=== PATIENT | female | born 1975 | race Caucasian/White ===

== ENCOUNTER 2018-10-31 06:47 | Day surgery (SDC) | payer MEDICAID ==
[~2018-10-31] VITALS: Ht 162.6 cm; Wt 70.4 kg
[2018-10-31] MEDS ORDERED: CHOL400T14 PO (07:53)
[2018-10-31] MEDS ORDERED: ASCO500C15 PO (07:53)
[2018-10-31] MEDS ORDERED: MAGN27TA2 PO (07:53)
[2018-10-31] MEDS ORDERED: CYAN1TAB18 PO (07:53)
[2018-10-31] MEDS ORDERED: CALC500T11 PO (07:53)
[2018-10-31] MEDS ORDERED: AMOX-422 PO (07:53)
[2018-10-31] MEDS ORDERED: CETI10TA18 PO (07:53)
[2018-10-31] MEDS ORDERED: ONDA8TAB13 PO (07:53)
[2018-10-31] MEDS ORDERED: PROC10TA10 PO (07:53)
[2018-10-31] MEDS ORDERED: FAMO20TA8 PO (07:53)
[2018-10-31] MEDS ORDERED: [UNRECOGNIZED DRUG - CODE] PO (07:53)
[2018-10-31] MEDS ORDERED: MULT-955 PO (07:53)
[2018-10-31] MEDS ORDERED: LIDO30CR23 TOP (07:53)
[2018-10-31 07:57] VITALS: BP 130/81
[2018-10-31 08:19] VITALS: BP 115/69
[2018-10-31 08:30] VITALS: BP 136/79
[2018-10-31 08:50] VITALS: BP 150/78
[2018-10-31 08:51] VITALS: BP 150/78
[2018-10-31] MEDS ORDERED: HYDROcodone/acetaminophen 5mg/325mg tablet PO STA (08:52)
[2018-10-31] MEDS ORDERED: LIDOcaine 1% 30ml preserv. free vial SQ ONE (09:00)
== END 2018-10-31 09:10 | disposition home or self-care (01) ==
LOC: SSTAY O 06:47
PROVIDERS: ATTEND Radiology Diagnostic Radiology
DX: J90 Pleural effusion, not elsewhere classified (principal); K21.9 Gastro-esophageal reflux disease without esophagitis; Z88.8 Allergy status to other drugs, medicaments and biological substances; Z79.899 Other long term (current) drug therapy; Z85.3 Personal history of malignant neoplasm of breast
CPT/HCPCS: 32555; 71045; J3490; C1729

== ENCOUNTER 2018-11-21 06:30 | Day surgery (SDC) | payer MEDICAID ==
[~2018-11-21] VITALS: Ht 162.6 cm; Wt 67.9 kg
[~2018-11-21 06:30] MED LIST: AMOX-422 PO; ASCO500C15 PO; CALC500T11 PO; CETI10TA18 PO; CHOL400T14 PO; CYAN1TAB18 PO; FAMO20TA8 PO; LIDO30CR23 TOP; MAGN27TA2 PO; MULT-955 PO; ONDA8TAB13 PO; PROC10TA10 PO; [UNRECOGNIZED DRUG - CODE] PO
[2018-11-21] MEDS ORDERED: IBUP-1984 PO (07:14)
[2018-11-21] MEDS ORDERED: BUDE10.22 INH (07:14)
[2018-11-21] MEDS ORDERED: HYDR-4383 PO (07:14)
[2018-11-21] MEDS ORDERED: FLUT16SP2 BOTHNARES (07:14)
[2018-11-21 07:30] VITALS: BP 130/63
[2018-11-21 08:25] VITALS: BP 142/69
[2018-11-21 08:39] VITALS: BP 141/73
[2018-11-21 08:59] VITALS: BP 130/82
[2018-11-21] MEDS ORDERED: LIDOcaine 1% 30ml preserv. free vial SQ ONE (09:00)
--- NOTE | 2018-11-21 09:00 | NUR ---
Pt coughing excessively post bilateral thoracentesis. Saleem Carrasco aware. No new orders received.
[2018-11-21 09:19] VITALS: BP 127/85
--- NOTE | 2018-11-21 09:25 | NUR ---
Pt still coughing but not as much as before. Pt feeling better and wants to go home. Appears in stable condition, although heart rate somewhat elevated. Pt discharged to home with family.
== END 2018-11-21 09:25 | disposition home or self-care (01) ==
LOC: SSTAY O 06:30
PROVIDERS: ATTEND Radiology Diagnostic Radiology
DX: J90 Pleural effusion, not elsewhere classified (principal); K21.9 Gastro-esophageal reflux disease without esophagitis; Z85.3 Personal history of malignant neoplasm of breast; Z79.899 Other long term (current) drug therapy
CPT/HCPCS: 32555; 71045; C1729; J3490

== ENCOUNTER 2018-11-29 06:24 | Day surgery (SDC) | payer MEDICAID ==
[~2018-11-29 06:24] MED LIST changes: -AMOX-422 PO; +BUDE10.22 INH; +FLUT16SP2 BOTHNARES; +HYDR-4383 PO; +IBUP-1984 PO
[2018-11-29 06:45] VITALS: BP 130/73
[2018-11-29 08:32] VITALS: BP 120/81
[2018-11-29 08:46] VITALS: BP 124/75
[2018-11-29] MEDS ORDERED: LIDOcaine 1% 30ml preserv. free vial SQ ONE (09:00)
[2018-11-29 09:01] VITALS: BP 131/72
== END 2018-11-29 09:20 | disposition home or self-care (01) ==
LOC: SSTAY O 06:24
PROVIDERS: ATTEND Radiology Diagnostic Radiology
DX: J90 Pleural effusion, not elsewhere classified (principal); J21.9 Acute bronchiolitis, unspecified; Z85.3 Personal history of malignant neoplasm of breast; Z79.899 Other long term (current) drug therapy; Z88.8 Allergy status to other drugs, medicaments and biological substances
CPT/HCPCS: 32555; 71045; C1729

== ENCOUNTER 2018-12-06 06:30 | Day surgery (SDC) | payer MEDICAID ==
[~2018-12-06] VITALS: Ht 162.6 cm; Wt 69.5 kg
[2018-12-06 06:40] VITALS: BP 139/78
[2018-12-06] MEDS ORDERED: LIDOcaine 1% 30ml preserv. free vial SQ STA (07:08)
[2018-12-06] MEDS ORDERED: AMOX-580 PO (07:21)
[2018-12-06] MEDS ORDERED: MAGN400C PO (07:21)
[2018-12-06] MEDS ORDERED: OLIV250C PO (07:21)
[2018-12-06 09:05] VITALS: BP 117/73
[2018-12-06 09:10] VITALS: BP 111/83
[2018-12-06 09:25] VITALS: BP 120/76
== END 2018-12-06 09:25 | disposition home or self-care (01) ==
LOC: SSTAY O 06:30
PROVIDERS: ATTEND Radiology Vascular & Interventional Radiology
DX: J90 Pleural effusion, not elsewhere classified (principal); K21.9 Gastro-esophageal reflux disease without esophagitis; Z85.3 Personal history of malignant neoplasm of breast; Z79.899 Other long term (current) drug therapy
CPT/HCPCS: 32555; 71045; C1729; J3490

== ENCOUNTER 2018-12-19 07:10 | Day surgery (SDC) | payer MEDICAID ==
[~2018-12-19] VITALS: Ht 162.6 cm; Wt 68.4 kg
[~2018-12-19 07:10] MED LIST changes: +AMOX-580 PO; -MAGN27TA2 PO; +MAGN400C PO; +OLIV250C PO; -[UNRECOGNIZED DRUG - CODE] PO
[2018-12-19] MEDS ORDERED: GUAI120L55 PO (07:33)
[2018-12-19 07:37] VITALS: BP 132/76
[2018-12-19] MEDS ORDERED: LIDOcaine 1% 30ml preserv. free vial SQ STA (08:02)
[2018-12-19 08:32] VITALS: BP 100/65
[2018-12-19 08:40] VITALS: BP 132/76
[2018-12-19 08:55] VITALS: BP 102/65
[2018-12-19 09:10] VITALS: BP 100/64
== END 2018-12-19 09:15 | disposition home or self-care (01) ==
LOC: SSTAY O 07:10
PROVIDERS: ATTEND Radiology Diagnostic Radiology
DX: J90 Pleural effusion, not elsewhere classified (principal); K21.9 Gastro-esophageal reflux disease without esophagitis; Z79.899 Other long term (current) drug therapy; Z85.3 Personal history of malignant neoplasm of breast
CPT/HCPCS: 32555; 71045; C1729

== ENCOUNTER 2018-12-26 06:35 | Day surgery (SDC) | payer MEDICAID ==
[~2018-12-26] VITALS: Ht 162.6 cm; Wt 69.4 kg
[~2018-12-26 06:35] MED LIST changes: -AMOX-580 PO; +GUAI120L55 PO
[2018-12-26 06:47] VITALS: BP 124/81
[2018-12-26 08:41] VITALS: BP 126/81
[2018-12-26 08:57] VITALS: BP 128/81
[2018-12-26 09:29] VITALS: BP 131/67
== END 2018-12-26 09:50 | disposition home or self-care (01) ==
LOC: SSTAY O 06:35
PROVIDERS: ATTEND Radiology Vascular & Interventional Radiology
DX: J90 Pleural effusion, not elsewhere classified (principal); K21.9 Gastro-esophageal reflux disease without esophagitis; Z88.8 Allergy status to other drugs, medicaments and biological substances; Z85.3 Personal history of malignant neoplasm of breast
CPT/HCPCS: 32555; 71045

== ENCOUNTER 2019-01-02 06:50 | Day surgery (SDC) | payer MEDICAID ==
[~2019-01-02] VITALS: Ht 162.6 cm; Wt 70.1 kg
[2019-01-02 07:37] VITALS: BP 152/54
[2019-01-02] MEDS ORDERED: ESOM20CA PO (08:14)
[2019-01-02 08:23] VITALS: BP 121/73
[2019-01-02 08:30] VITALS: BP 123/75
[2019-01-02 08:46] VITALS: BP 121/54
[2019-01-02 09:00] VITALS: BP 137/75
== END 2019-01-02 09:15 | disposition home or self-care (01) ==
LOC: SSTAY O 06:50
PROVIDERS: ATTEND Radiology Diagnostic Radiology
DX: J90 Pleural effusion, not elsewhere classified (principal); K21.9 Gastro-esophageal reflux disease without esophagitis; Z85.3 Personal history of malignant neoplasm of breast; Z79.899 Other long term (current) drug therapy
CPT/HCPCS: 32555; 71045; C1729; J2001

== ENCOUNTER 2019-01-08 07:10 | Day surgery (SDC) | payer MEDICAID ==
[~2019-01-08] VITALS: Ht 162.6 cm; Wt 69.7 kg
[~2019-01-08 07:10] MED LIST changes: +ESOM20CA PO
[2019-01-08 07:37] VITALS: BP 123/67
[2019-01-08] MEDS ORDERED: [UNRECOGNIZED DRUG - OTHER] PEG (07:57)
[2019-01-08 08:47] VITALS: BP 125/69
[2019-01-08 09:01] VITALS: BP 128/78
[2019-01-08 09:15] VITALS: BP 125/85
[2019-01-08 09:30] VITALS: BP 126/76
== END 2019-01-08 09:45 | disposition home or self-care (01) ==
LOC: SSTAY O 07:10
PROVIDERS: ATTEND Radiology Vascular & Interventional Radiology
DX: J90 Pleural effusion, not elsewhere classified (principal); C50.919 Malignant neoplasm of unspecified site of unspecified female breast; F32.9 Major depressive disorder, single episode, unspecified; Z88.8 Allergy status to other drugs, medicaments and biological substances; Z79.899 Other long term (current) drug therapy
CPT/HCPCS: 32555; 71045; C1729; J2001

== ENCOUNTER 2019-01-27 08:50 | Day surgery (SDC) | payer MEDICAID ==
[~2019-01-27] VITALS: Ht 162.6 cm; Wt 68.5 kg
[2019-01-27] VITALS (8 sets, daily range): BP systolic 106–132; BP diastolic 63–78
[~2019-01-27 08:50] MED LIST changes: +CAPE500T15 PO; +LAPA250T PO; +[UNRECOGNIZED DRUG - OTHER] PEG
== END 2019-01-27 11:45 | disposition home or self-care (01) ==
LOC: SSTAY O 08:50
PROVIDERS: ATTEND Radiology Vascular & Interventional Radiology
DX: J90 Pleural effusion, not elsewhere classified (principal)
CPT/HCPCS: 32555; 71045; C1729

== ENCOUNTER 2019-02-11 07:09 | Day surgery (SDC) | payer MEDICAID ==
[2019-02-11] VITALS (9 sets, daily range): BP systolic 106–112; BP diastolic 56–83
[~2019-02-11] VITALS: Ht 162.6 cm; Wt 66.9 kg
[~2019-02-11 07:09] MED LIST changes: -ESOM20CA PO
== END 2019-02-11 09:35 | disposition home or self-care (01) ==
LOC: SSTAY O 07:09
PROVIDERS: ATTEND Radiology Diagnostic Radiology
DX: J90 Pleural effusion, not elsewhere classified (principal); K21.9 Gastro-esophageal reflux disease without esophagitis; Z79.899 Other long term (current) drug therapy; Z88.8 Allergy status to other drugs, medicaments and biological substances; Z85.3 Personal history of malignant neoplasm of breast; Z98.890 Other specified postprocedural states
CPT/HCPCS: 32555; 71045; C1729

== ENCOUNTER 2019-02-19 07:14 | Day surgery (SDC) | payer MEDICAID ==
[~2019-02-19] VITALS: Ht 162.6 cm; Wt 68.8 kg
[2019-02-19] VITALS (7 sets, daily range): BP systolic 112–130; BP diastolic 65–71
[~2019-02-19 07:14] MED LIST changes: -CETI10TA18 PO; -FLUT16SP2 BOTHNARES; -GUAI120L55 PO; -ONDA8TAB13 PO
== END 2019-02-19 09:15 | disposition home or self-care (01) ==
LOC: SSTAY O 07:14
PROVIDERS: ATTEND Radiology Vascular & Interventional Radiology
DX: J90 Pleural effusion, not elsewhere classified (principal); K21.9 Gastro-esophageal reflux disease without esophagitis; Z79.899 Other long term (current) drug therapy; Z88.8 Allergy status to other drugs, medicaments and biological substances; Z85.3 Personal history of malignant neoplasm of breast
CPT/HCPCS: 32555; 71045; C1729

== ENCOUNTER 2019-02-28 08:25 | Day surgery (SDC) | payer MEDICAID ==
[~2019-02-28] VITALS: Ht 162.6 cm; Wt 68.2 kg
[2019-02-28 08:37] VITALS: BP 114/73
[2019-02-28 09:15] VITALS: BP 110/62
[2019-02-28 09:34] VITALS: BP 111/67
[2019-02-28 09:51] VITALS: BP 112/71
[2019-02-28 10:06] VITALS: BP 118/72
== END 2019-02-28 10:30 | disposition home or self-care (01) ==
LOC: SSTAY O 08:25
PROVIDERS: ATTEND Radiology Diagnostic Radiology
DX: J90 Pleural effusion, not elsewhere classified (principal); K21.9 Gastro-esophageal reflux disease without esophagitis; Z85.3 Personal history of malignant neoplasm of breast; Z98.890 Other specified postprocedural states; Z88.1 Allergy status to other antibiotic agents; Z79.899 Other long term (current) drug therapy
CPT/HCPCS: 32555; 71045

== ENCOUNTER 2019-03-11 08:25 | Day surgery (SDC) | payer MEDICAID ==
[~2019-03-11] VITALS: Ht 162.6 cm; Wt 67.5 kg
[2019-03-11 08:31] VITALS: BP 109/79
[2019-03-11] MEDS ORDERED: DIPH1TAB PO (08:43)
[2019-03-11 08:55] VITALS: BP 109/79
[2019-03-11 08:57] VITALS: BP 103/68
[2019-03-11 09:00] VITALS: BP 111/69
[2019-03-11 09:04] VITALS: BP 120/63
[2019-03-11 09:45] VITALS: BP 118/70
== END 2019-03-11 09:45 | disposition home or self-care (01) ==
LOC: SSTAY O 08:25
PROVIDERS: ATTEND Radiology Diagnostic Radiology
DX: J90 Pleural effusion, not elsewhere classified (principal); K21.9 Gastro-esophageal reflux disease without esophagitis; Z88.1 Allergy status to other antibiotic agents; Z85.3 Personal history of malignant neoplasm of breast; Z79.899 Other long term (current) drug therapy; Z79.2 Long term (current) use of antibiotics
CPT/HCPCS: 32555; 71045

== ENCOUNTER 2019-03-20 06:16 | Day surgery (SDC) | payer MEDICAID ==
[~2019-03-20] VITALS: Ht 162.6 cm; Wt 67.7 kg
[~2019-03-20 06:16] MED LIST changes: +DIPH1TAB PO
[2019-03-20 06:38] VITALS: BP 109/72
[2019-03-20 08:14] VITALS: BP 115/68
[2019-03-20 08:15] VITALS: BP 129/59
== END 2019-03-20 09:07 | disposition home or self-care (01) ==
LOC: SSTAY O 06:16
PROVIDERS: ATTEND Radiology Vascular & Interventional Radiology
DX: J90 Pleural effusion, not elsewhere classified (principal); Z88.8 Allergy status to other drugs, medicaments and biological substances
CPT/HCPCS: 32555; 71045